=== PATIENT | female | born 1995 | race Caucasian/White ===

== ENCOUNTER 2016-07-28 | Emergency (ER) | payer MEDICAID | END 2016-07-28 19:44 | disposition home or self-care (01) | DX: L01.00 Impetigo, unspecified (principal) ==

== ENCOUNTER 2016-10-02 04:03 | Emergency (ER) | payer MEDICAID ==
[2016-10-02] MEDS ORDERED: AZITHROMYCIN 250 MG TABLET PO STA (04:15)
[2016-10-02] MEDS ORDERED: DEXAMETHASONE 10 MG/ML VIAL PO STA (04:15)
[2016-10-02] MEDS ORDERED: AZITHROMYCIN 250 MG TABLET PO ONE (04:17)
[2016-10-02] MEDS ORDERED: CHERRY SYRUP 10 ML UDC PO ONE (04:17)
[2016-10-02] MEDS ORDERED: DEXAMETHASONE 10 MG/ML VIAL ONE (04:17)
== END 2016-10-02 04:26 | disposition home or self-care (01) ==
DX: H66.003 Acute suppurative otitis media without spontaneous rupture of ear drum, bilateral (principal)
CPT/HCPCS: 99283; A9270

== ENCOUNTER 2016-10-05 16:34 | Outpatient (CLI) | payer MEDICAID | END 2016-10-05 16:35 | disposition home or self-care (01) | DX: N91.2 Amenorrhea, unspecified (principal) ==

== ENCOUNTER 2016-10-06 20:59 | Outpatient (CLI) | payer MEDICAID | END 2016-10-06 21:00 | disposition home or self-care (01) | DX: N83.202 Unspecified ovarian cyst, left side (principal) ==

== ENCOUNTER 2017-01-01 03:44 | Outpatient (CLI) | payer MEDICAID | END 2017-01-01 03:45 | disposition critical access hospital (66) | LOC: EMS 03:44 | PROVIDERS: ATTEND Surgery | DX: S41.111A Laceration without foreign body of right upper arm, initial encounter (principal); X78.0XXA Intentional self-harm by sharp glass, initial encounter; Y92.039 Unspecified place in apartment as the place of occurrence of the external cause | CPT/HCPCS: A0425; A0429 ==

== ENCOUNTER 2017-01-01 04:01 | Emergency (ER) | payer MEDICAID ==
[2017-01-01 04:31] LABS: BASOPHILS # (AUTO) 0.1 10^3/uL (0.0-0.1); BASOPHILS % (AUTO) 0.7 %; EOSINOPHILS # (AUTO) 0.1 10^3/uL (0.0-0.7); EOSINOPHILS % (AUTO) 0.7 %; HCT - HEMATOCRIT 38.1 % (37.0-47.0); HGB - HEMOGLOBIN 12.7 g/dL (12.0-16.0); LYMPHOCYTES # (AUTO) 1.9 10^3/uL (1.5-3.5); LYMPHOCYTES % (AUTO) 25.5 %; MEAN CORPUSCULAR HEMOGLOBIN 30.3 pg (27.0-31.0); MEAN CORPUSCULAR HGB CONC 33.4 g/dL (32.0-36.0); MEAN CORPUSCULAR VOLUME 90.6 fL (81.0-99.0); MEAN PLATELET VOLUME 7.4 fL (7.9-10.8); MONOCYTES # (AUTO) 0.5 10^3/uL (0.0-1.0); MONOCYTES % (AUTO) 6.9 %; NEUTROPHILS # (AUTO) 4.8 10^3/uL (1.5-6.6); NEUTROPHILS % (AUTO) 66.2 %; RED BLOOD COUNT 4.21 10^6/uL (4.20-5.40); RED CELL DISTRIBUTION WIDTH 13.6 % (12.0-15.0); UNCORRECTED WHITE BLOOD COUNT 7.3 x10^3/uL; WHITE BLOOD COUNT 7.3 x10^3/uL (4.8-10.8)
[2017-01-01 04:34] LABS: CREATININE 0.6 mg/dL (0.4-1.0); POTASSIUM 3.8 mmol/L (3.5-5.0)
[2017-01-01 04:35] LABS: HCG UR QUAL NEGATIVE
--- NOTE | 2017-01-01 04:57 | ED Physician Documentation ---
PD HPI MHE - Stated complaint Stated Complaint: SUPERFCIAL CUTS - Chief complaint Chief Complaint: MHE - History obtained from History obtained from: Patient, EMS - History of Present Illness Primary symptom: Self harm - cut Timing - onset: How many hours ago (less than 1 hour OPERATIONS TRAINER) Pain level now: 0 Contributing factors: Other (boyfriend) Similar symptoms before: Has not had sx before Recently seen: Not recently seen - Additional information Additional information: got into an argument with her boyfriend; she picked up a piece of broken glass and self-inflicted superficial abrasions to right FA Review of Systems Neurologic: denies: Focal weakness, Numbness Psychiatric: denies: Depressed, Suicidal, Homicidal PD PAST MEDICAL HISTORY - Past Medical History Past Medical History: No - Past Surgical History Past Surgical History: No - Present Medications Home Medications: Ambulatory Orders Medication Instructions Recorded Confirmed No Known Home Medications [No 01/01/17 01/01/17 Known Home Medications] - Allergies Allergies/Adverse Reactions: Allergies Allergy/AdvReac Type Severity Reaction Status Date / Time No Known Drug Allergies Allergy Verified 01/01/17 04:08 - Social History Does the pt smoke?: No Smoking Status: Never smoker Does the pt drink ETOH?: Yes Does the pt have substance abuse?: No - Immunizations Immunizations are current?: Yes PD ED PE NORMAL - Vitals Vital signs reviewed: Yes - General General: Alert and oriented X 3, No acute distress, Well developed/nourished - HEENT HEENT: Moist mucous membranes - Cardiac Cardiac: RRR, No murmur - Respiratory Respiratory: No respiratory distress, Clear bilaterally - Extremities Extremities: Other (superficial linear abrasions right FA, volar surface) - Neuro Neuro: Alert and oriented X 3, No motor deficit, No sensory deficit - Psych Psych: Normal mood, Normal affect Results - Vitals Vitals: Vital Signs - 24 hr 01/01/17 01/01/17 04:04 05:24 Temperature 36.9 C Heart Rate 109 H 79 Respiratory 16 16 Rate Blood Pressure 121/89 H 106/69 O2 Saturation 97 98 Oxygen O2 Source Room air - Labs Labs: Laboratory Tests 01/01/17 01/01/17 01/01/17 04:10 04:15 04:15 WBC 7.3 RBC 4.21 Hgb 12.7 Hct 38.1 MCV 90.6 MCH 30.3 MCHC 33.4 RDW 13.6 Plt Count 305 MPV 7.4 L Neut # 4.8 Lymph # 1.9 Baxter # 0.5 Eos # 0.1 Baso # 0.1 Absolute Nucleated RBC 0.00 Nucleated RBCs 0.0 Sodium 144 Potassium 3.8 Chloride 111 Carbon Dioxide 25 Anion Gap 8.0 BUN 12 Creatinine 0.6 Estimated GFR (MDRD) 127 Glucose 90 Calcium 9.0 Ur Specific [place] 1.025 Urine HCG, Qual NEGATIVE Urine Opiates Screen NEGATIVE Ur Oxycodone Screen NEGATIVE Urine Methadone Screen NEGATIVE Ur Propoxyphene Screen NEGATIVE Ur Barbiturates Screen NEGATIVE Ur Tricyclics Screen NEGATIVE Ur Phencyclidine Scrn NEGATIVE Ur Amphetamine Screen NEGATIVE U Methamphetamines Scrn NEGATIVE U Benzodiazepines Scrn NEGATIVE Urine Cocaine Screen NEGATIVE U Cannabinoids Screen NEGATIVE Ethyl Alcohol 122.9 PD MEDICAL DECISION MAKING - ED course Complexity details: reviewed results, re-evaluated patient, considered differential, d/w patient ED course: Patient strongly denies suicidal ideation. She admits to drinking some alcohol tonight and she says she self-inflicted her abrasions "in the heat of the moment " (per patient) because she was angry over the argument with her boyfriend. She feels safe going home and declines offer for MHE evaluation. Departure - Departure Disposition: 01 Home, Self Care Clinical Impression: Alcoholic intoxication, Injury, self-inflicted Condition: Good Instructions: ED Abrasion, ED Alcohol Intoxication Discharge Date/Time: 01/01/17 05:26
[2017-01-01 05:26] VITALS: BP 106/69
== END 2017-01-01 05:26 | disposition home or self-care (01) ==
LOC: EDUNIT# → ED 04:01
DX: S50.811A Abrasion of right forearm, initial encounter (principal); X78.0XXA Intentional self-harm by sharp glass, initial encounter; F10.129 Alcohol abuse with intoxication, unspecified
CPT/HCPCS: 36415; 80048; 80306; 80320; 81025; 85025; 99284

== ENCOUNTER 2017-01-29 23:30 | Emergency (ER) | payer MEDICAID ==
[2017-01-29 23:49] LABS: BILIRUBIN,URINE NEGATIVE (NEGATIVE); PH,URINE 6.5 PH (5.0-7.5)
[2017-01-29 23:51] LABS: HCG UR QUAL POSITIVE; UA CHARGE (STRIP ONLY) YES; UR CULTURE IF IND NOT INDICATED
[2017-01-30 00:10] LABS: BASOPHILS % (AUTO) 0.4 %; EOSINOPHILS # (AUTO) 0.2 10^3/uL (0.0-0.7); EOSINOPHILS % (AUTO) 1.4 %; HCT - HEMATOCRIT 34.3 % (37.0-47.0); HGB - HEMOGLOBIN 11.5 g/dL (12.0-16.0); LYMPHOCYTES # (AUTO) 2.8 10^3/uL (1.5-3.5); LYMPHOCYTES % (AUTO) 25.6 %; MEAN CORPUSCULAR HEMOGLOBIN 30.3 pg (27.0-31.0); MEAN CORPUSCULAR HGB CONC 33.5 g/dL (32.0-36.0); MEAN CORPUSCULAR VOLUME 90.3 fL (81.0-99.0); MEAN PLATELET VOLUME 7.1 fL (7.9-10.8); NEUTROPHILS % (AUTO) 63.6 %; RED BLOOD COUNT 3.79 10^6/uL (4.20-5.40); RED CELL DISTRIBUTION WIDTH 13.1 % (12.0-15.0); UNCORRECTED WHITE BLOOD COUNT 11.1 x10^3/uL; WHITE BLOOD COUNT 11.1 x10^3/uL (4.8-10.8)
--- NOTE | 2017-01-30 00:20 | ED Physician Documentation ---
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 patient states that she took a home test 2 days ago and it was positive. Patient states that today after she had intercourse she noticed blood in the urine and blood when she wiped. patient is also complaining of suprapubic pain that is stabbing in nature that comes and goes. Review of Systems Constitutional: denies: Fever, Chills Eyes: denies: Decreased vision Ears: denies: Ear pain, Drainage/discharge Nose: denies: Rhinorrhea / runny nose, Congestion, Epistaxis Throat: denies: Oral lesions / sores, Sore throat Cardiac: denies: Chest pain / pressure GI: reports: Abdominal Pain. denies: Nausea, Vomiting, Constipation, Diarrhea : reports: Hematuria, Vaginal bleeding, Missed period Skin: denies: Rash, Lesions Musculoskeletal: denies: Neck pain, Back pain, Extremity pain Endocrine: denies: Polyphagia PD PAST MEDICAL HISTORY - Past Surgical History Past Surgical History: No - Present Medications Home Medications: Ambulatory Orders Medication Instructions Recorded Confirmed No Known Home Medications [No 01/01/17 01/29/17 Known Home Medications] - Allergies Allergies/Adverse Reactions: Allergies Allergy/AdvReac Type Severity Reaction Status Date / Time No Known Drug Allergies Allergy Verified 01/29/17 23:39 - Social History Does the pt smoke?: No Smoking Status: Never smoker Does the pt drink ETOH?: Yes Does the pt have substance abuse?: No - Immunizations Immunizations are current?: Yes PD ED PE NORMAL - Vitals Vital signs reviewed: Yes - General General: Alert and oriented X 3, No acute distress - HEENT HEENT: Atraumatic, PERRL - Neck Neck: Supple, no meningeal sign - Cardiac Cardiac: RRR, No murmur - Respiratory Respiratory: No respiratory distress - Abdomen Abdomen: Soft - Derm Derm: Normal color, Warm and dry, No rash - Extremities Extremities: No deformity - Neuro Neuro: Alert and oriented X 3, manager agriculture 2-12 intact, No motor deficit, No sensory deficit - Psych Psych: Normal mood, Normal affect PD ED PE EXPANDED - Female Female : Normal external, Vaginal Discharge (minimal vaginal discharge), Cultures sent, Bobtail Driver present. No: Dilated cervix, Tissue present, Adnexal Mass, Adnexal Tenderness Results - Vitals Vitals: Vital Signs - 24 hr 01/29/17 23:35 Temperature 36.8 C Heart Rate 85 Respiratory 18 Rate Blood Pressure 114/72 O2 Saturation 99 Oxygen O2 Source Room air - Labs Labs: Microbiology 01/30/17 00:15 Wet Prep - Final Genital - Vaginal Laboratory Tests 01/29/17 01/30/17 01/30/17 23:40 00:00 00:00 WBC 11.1 H RBC 3.79 L Hgb 11.5 L Hct 34.3 L MCV 90.3 MCH 30.3 MCHC 33.5 RDW 13.1 Plt Count 288 MPV 7.1 L Neut # 7.0 H Lymph # 2.8 [place] # 1.0 Eos # 0.2 Baso # 0.0 Absolute Nucleated RBC 0.00 Nucleated RBCs 0.0 HCG, Quant 6990.00 Urine Color YELLOW Urine Clarity CLEAR Urine pH 6.5 Ur Specific Brogan 1.020 Urine Protein NEGATIVE Urine Glucose (UA) NEGATIVE Urine Ketones NEGATIVE Urine Occult Blood NEGATIVE Urine Nitrite NEGATIVE Urine Bilirubin NEGATIVE Urine Urobilinogen 0.2 (NORMAL) Ur Leukocyte Esterase NEGATIVE Ur Microscopic Review NOT INDICATED Urine Culture Comments NOT INDICATED Urine HCG, Qual POSITIVE Blood Type 01/30/17 00:25 WBC RBC Hgb Hct MCV MCH MCHC RDW Plt Count MPV Neut # Lymph # Sierra # Eos # Baso # Absolute Nucleated RBC Nucleated RBCs HCG, Quant Urine Color Urine Clarity Urine pH Ur Specific Brogan Urine Protein Urine Glucose (UA) Urine Ketones Urine Occult Blood Urine Nitrite Urine Bilirubin Urine Urobilinogen Ur Leukocyte Esterase Ur Microscopic Review Urine Culture Comments Urine HCG, Qual Blood Type O POSITIVE PD MEDICAL DECISION MAKING - ED course Complexity details: reviewed old records, reviewed results, re-evaluated patient , considered differential, d/w patient ED course: Patient was seen and examined at bedside. Patient was well appearing with normal vital signs. urine was collected and was positive. labs were drawn and ultrasound was ordered. Patient rh positive. ultrasound was performed. Patient had an iup. Patient was given detailed discharge and return instructions. Patient required no further work up and was stable for discharge with outpatient follow up. Departure - Departure Disposition: 01 Home, Self Care Clinical Impression: Threatened in early Condition: Good Instructions: ED Miscarriage Poss Follow-Up: Gail Roque, [Provider Admit Priv/Credential] - Tomorrow (call to schedule a follow up appointment) Comments: You have an early . You should call dr. Roque tomorrow to schedule a follow up appointment. You should return to the emergency department at any time for new, worsening or uncontrollable symptoms.
--- NOTE | 2017-01-30 02:33 | Ultrasound Preliminary Report ---
Exam: US OB TRANSVAGINAL IMPRESSION: Probable very early intrauterine gestation with a very early intrauterine gestational sac and yolk sac but no pole seen currently. Clinical and 2 week follow-up pelvic ultrasound sugge sted to ensure viability and to entirely exclude ectopic. [facility] SITE ID: [id number]
--- NOTE | 2017-01-30 02:35 | Ultrasound Report ---
EXAM: FIRST TRIMESTER OBSTETRIC ULTRASOUND (Less than 11 weeks) EXAM DATE: 01/30/2017 02:08 AM. CLINICAL HISTORY: Vaginal bleeding early . LMP: 12/17/2016, 6 weeks 2 days. COMPARISONS: None. TECHNIQUE: Transabdominal and transvaginal ultrasound examination with static image documentation. FINDINGS: Gestational Sac: Probable very early intrauterine gestational sac with a mean sac diameter of 9 mm, 5 weeks 5 days. Small yolk sac with no pole seen currently. Placenta: Not visible at this gestational age. Amniotic fluid: Not accurately assessed at this gestational age. Uterus: Unremarkable anteverted appearance. Right Ovary: Volume 5 cc. Normal echotexture and blood flow. Left Ovary: Volume 23 cc. Normal echotexture and blood flow. Free Fluid: None. Other: None. IMPRESSION: Probable very early intrauterine gestation with a very early intrauterine gestational sac and yolk sac but no pole seen currently. Clinical and 2 week follow-up pelvic ultrasound sugge sted to ensure viability and to entirely exclude ectopic. [facility] Referring Provider Line: [phone] SITE ID: [id number]
[2017-01-30 02:51] VITALS: BP 111/74
== END 2017-01-30 02:52 | disposition home or self-care (01) ==
LOC: ED 23:30
DX: O20.0 Threatened abortion (principal)
CPT/HCPCS: 36415; 76801; 76817; 81001; 81003; 81025; 84702; 85025; 86900; 86901; 87086; 87210; 87491; 87591; 99283; 99284

== ENCOUNTER 2017-02-07 15:55 | Outpatient (CLI) | payer MEDICAID | END 2017-02-07 15:56 | disposition home or self-care (01) | LOC: LAB 15:55 | PROVIDERS: ATTEND Obstetrics & Gynecology | DX: O20.0 Threatened abortion (principal) | CPT/HCPCS: 36415; 84702 ==

== ENCOUNTER 2017-02-07 16:07 | Emergency (ER) | payer MEDICAID ==
--- NOTE | 2017-02-07 21:16 | Ultrasound Preliminary Report ---
Exam: US OB First Trimester IMPRESSION: 1. Single viable intrauterine at EGA 6 weeks 5 days with MATT 09/28/2017 based on crown-rump length, which is concordant with clinical dates. 2. Assigned dating is MATT 09/28/2017 based on current ultrasound. [facility] SITE ID: [id number]
--- NOTE | 2017-02-07 21:19 | Ultrasound Report ---
EXAM: FIRST TRIMESTER OBSTETRIC ULTRASOUND (Less than 11 weeks) EXAM DATE: 02/07/2017 08:57 PM. CLINICAL HISTORY: Vaginal bleeding, no confirmed iup. LMP: 12/17/2016. COMPARISONS: 01/30/2017. TECHNIQUE: Transabdominal and transvaginal ultrasound examination with static image documentation. CLINICAL DATES: EGA 7 weeks 3 days with MATT 09/23/2017 based on LMP. ASSESSMENT: Gestational Sac: Single intrauterine. Mean gestational sac diameter: 25 mm = 7 weeks 4 days. Embryo: CRL (crown-rump length) 7.3 mm = 6 weeks 5 days. Cardiac activity: 130 beats per minute. Yolk sac: 2 mm. Amniotic fluid: Not accurately assessed at this gestational age. Early placenta: Not visible at this gestational age. Other: No perigestational fluid collection demonstrated. MATERNAL STRUCTURES: Uterus: Anteverted. Unremarkable. Cervix: Closed. Right Ovary: 3.8 x 2.0 x 2.1 cm, volume 8.2 cc. Unremarkable. Left Ovary: 4.5 x 4.3 x 4.1 cm, volume 41.3 cc. Physiologic cysts measuring 2.3 and 1.9 cm. Normal ov jakob blood flow.. Free Fluid: None. Other: None. IMPRESSION: 1. Single viable intrauterine at EGA 6 weeks 5 days with MATT 09/28/2017 based on crown-rump length, which is concordant with clinical dates. 2. Assigned dating is MATT 09/28/2017 based on current ultrasound. [facility] Referring Provider Line: [phone] SITE ID: [id number]
[2017-02-07 21:25] VITALS: BP 114/91
--- NOTE | 2017-02-07 21:32 | ED Physician Documentation ---
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 patient was previously seen and had an inconclusive ultrasound. Patient went to see her doctor today who said sorry about your loss and told her she had a miscarriage. patient states that she had a follow up on but could not wait that long to find out if she had a or not. Patient denied abdominal pain, vaginal bleeding or vaginal discharge. Review of Systems Constitutional: denies: Fever, Chills Eyes: denies: Decreased vision Ears: denies: Ear pain, Drainage/discharge Nose: denies: Congestion Throat: denies: Dental pain / toothache, Sore throat Respiratory: denies: Cough GI: denies: Abdominal Pain, Nausea, Vomiting, Constipation, Diarrhea : denies: Dysuria, Frequency, Hematuria, Vaginal bleeding Skin: denies: Rash, Lesions Musculoskeletal: denies: Neck pain, Back pain Neurologic: denies: Generalized weakness Immunocompromised: denies: Immunocompromised PD PAST MEDICAL HISTORY - Past Surgical History Past Surgical History: No - Present Medications Home Medications: Ambulatory Orders Medication Instructions Recorded Confirmed No Known Home Medications [No 01/01/17 02/07/17 Known Home Medications] - Allergies Allergies/Adverse Reactions: Allergies Allergy/AdvReac Type Severity Reaction Status Date / Time No Known Drug Allergies Allergy Verified 02/07/17 16:26 - Social History Does the pt smoke?: No Smoking Status: Never smoker Does the pt drink ETOH?: Yes Does the pt have substance abuse?: No - Immunizations Immunizations are current?: Yes PD ED PE NORMAL - Vitals Vital signs reviewed: Yes - General General: Alert and oriented X 3, No acute distress - HEENT HEENT: Atraumatic, PERRL - Neck Neck: Supple, no meningeal sign - Cardiac Cardiac: RRR, No murmur - Respiratory Respiratory: No respiratory distress - Abdomen Abdomen: Soft, Non tender, Non distended - Derm Derm: Normal color, Warm and dry, No rash - Extremities Extremities: No deformity - Neuro Neuro: Alert and oriented X 3, No motor deficit, No sensory deficit - Psych Psych: Normal mood, Normal affect Results - Vitals Vitals: Vital Signs - 24 hr 02/07/17 02/07/17 16:22 21:25 Temperature 36.7 C Heart Rate 66 67 Respiratory 16 18 Rate Blood Pressure 115/78 114/91 H O2 Saturation 99 100 Oxygen O2 Source Room air - Labs Labs: Laboratory Tests 02/07/17 17:52 HCG, Quant 34794.00 - Rads (name of study) pelvic ultrasound Radiology: Final report received (viable iup, 6 weeks 5 days) PD MEDICAL DECISION MAKING - ED course Complexity details: reviewed old records, reviewed results, re-evaluated patient , considered differential, d/w patient, d/w family ED course: Patient was seen and examined at bedside. labs were drawn and imaging was ordered. when patient's diagnostics came back patient was found to have a viable iup. Patient had no vaginal bleeding or vaginal discharge. patient required no further work up at this time and was stable for discharge with outpatient follow up. Departure - Departure Disposition: 01 Home, Self Care Clinical Impression: Threatened in early , at early stage Condition: Good Instructions: Care , ED Miscarriage Poss Follow-Up: Nayeli Deng MINE CAR REPAIRER [Primary Care Provider] - Comments: Your diagnostics today were within normal limits. there is a viable IUP today. You should still follow up with your ob for routine care. You may return to the emergency department at any time for new, worsening or uncontrollable symptoms. Discharge Date/Time: 02/07/17 21:48
== END 2017-02-07 21:48 | disposition home or self-care (01) ==
LOC: ED 16:07
DX: O20.0 Threatened abortion (principal); Z3A.01 Less than 8 weeks gestation of pregnancy
CPT/HCPCS: 36415; 76801; 84702; 99282; 99283

== ENCOUNTER 2017-02-09 09:45 | Outpatient (CLI) | payer MEDICAID ==
[2017-02-09 10:19] LABS: BASOPHILS % (AUTO) 0.3 %; EOSINOPHILS # (AUTO) 0.1 10^3/uL (0.0-0.7); EOSINOPHILS % (AUTO) 0.7 %; HCT - HEMATOCRIT 35.2 % (37.0-47.0); HGB - HEMOGLOBIN 11.8 g/dL (12.0-16.0); LYMPHOCYTES # (AUTO) 1.7 10^3/uL (1.5-3.5); LYMPHOCYTES % (AUTO) 20.3 %; MEAN CORPUSCULAR HEMOGLOBIN 30.7 pg (27.0-31.0); MEAN CORPUSCULAR HGB CONC 33.6 g/dL (32.0-36.0); MEAN CORPUSCULAR VOLUME 91.3 fL (81.0-99.0); MEAN PLATELET VOLUME 7.5 fL (7.9-10.8); MONOCYTES # (AUTO) 0.6 10^3/uL (0.0-1.0); MONOCYTES % (AUTO) 7.3 %; NEUTROPHILS % (AUTO) 71.4 %; RED BLOOD COUNT 3.86 10^6/uL (4.20-5.40); RED CELL DISTRIBUTION WIDTH 13.3 % (12.0-15.0); UNCORRECTED WHITE BLOOD COUNT 8.5 x10^3/uL; WHITE BLOOD COUNT 8.5 x10^3/uL (4.8-10.8)
[2017-02-09 10:26] LABS: BILIRUBIN,URINE NEGATIVE (NEGATIVE)
[2017-02-09 10:40] LABS: WBC,URINE 0-3 /HPF (0-5)
== END 2017-02-09 09:46 | disposition home or self-care (01) ==
LOC: LAB 09:45
PROVIDERS: ATTEND Obstetrics & Gynecology
DX: Z36 Encounter for antenatal screening of mother (principal)
CPT/HCPCS: 36415; 81001; 81599; 85025; 86762; 86850; 86900; 86901; 87340; 87389

== ENCOUNTER 2017-02-09 10:42 | Outpatient (CLI) | payer MEDICAID | END 2017-02-09 10:43 | disposition home or self-care (01) | LOC: LAB.R 10:42 | PROVIDERS: ATTEND Obstetrics & Gynecology | DX: Z36 Encounter for antenatal screening of mother (principal) | CPT/HCPCS: 87491; 87591 ==

== ENCOUNTER 2017-03-14 16:16 | Outpatient (CLI) | payer MEDICAID | END 2017-03-14 16:17 | disposition home or self-care (01) | LOC: LAB 16:16 | PROVIDERS: ATTEND Obstetrics & Gynecology | DX: Z36 Encounter for antenatal screening of mother (principal) | CPT/HCPCS: 36415; 81599 ==

== ENCOUNTER 2017-06-29 11:00 | Outpatient (CLI) | payer MEDICAID ==
[2017-06-29 12:11] LABS: BASOPHILS % (AUTO) 0.2 %; EOSINOPHILS # (AUTO) 0.1 10^3/uL (0.0-0.7); EOSINOPHILS % (AUTO) 1.1 %; HCT - HEMATOCRIT 27.5 % (37.0-47.0); HGB - HEMOGLOBIN 9.2 g/dL (12.0-16.0); LYMPHOCYTES # (AUTO) 1.7 10^3/uL (1.5-3.5); LYMPHOCYTES % (AUTO) 14.6 %; MEAN CORPUSCULAR HEMOGLOBIN 29.7 pg (27.0-31.0); MEAN CORPUSCULAR HGB CONC 33.5 g/dL (32.0-36.0); MEAN CORPUSCULAR VOLUME 88.6 fL (81.0-99.0); MEAN PLATELET VOLUME 8.2 fL (7.9-10.8); MONOCYTES % (AUTO) 8.3 %; NEUTROPHILS # (AUTO) 8.8 10^3/uL (1.5-6.6); NEUTROPHILS % (AUTO) 75.8 %; RED CELL DISTRIBUTION WIDTH 12.3 % (12.0-15.0); UNCORRECTED WHITE BLOOD COUNT 11.6 x10^3/uL; WHITE BLOOD COUNT 11.6 x10^3/uL (4.8-10.8)
== END 2017-06-29 11:01 | disposition home or self-care (01) ==
LOC: LAB 11:00
PROVIDERS: ATTEND Family Medicine
DX: Z34.03 Encounter for supervision of normal first pregnancy, third trimester (principal)
CPT/HCPCS: 36415; 82947; 82950; 85025

== ENCOUNTER 2018-09-21 19:42 | Emergency (ER) | payer MEDICAID, OTHER ==
[2018-09-21 20:21] VITALS: BP 142/92
[2018-09-21 20:34] LABS: BASOPHILS % (AUTO) 0.3 %; EOSINOPHILS % (AUTO) 0.3 %; HGB - HEMOGLOBIN 12.6 g/dL (12.0-16.0); LYMPHOCYTES # (AUTO) 1.3 10^3/uL (1.5-3.5); LYMPHOCYTES % (AUTO) 17.7 %; MEAN CORPUSCULAR HEMOGLOBIN 30.8 pg (27.0-31.0); MEAN CORPUSCULAR HGB CONC 34.6 g/dL (32.0-36.0); MEAN PLATELET VOLUME 7.6 fL (7.9-10.8); MONOCYTES # (AUTO) 0.4 10^3/uL (0.0-1.0); MONOCYTES % (AUTO) 5.7 %; NEUTROPHILS # (AUTO) 5.7 10^3/uL (1.5-6.6); PLT - PLATELET COUNT 273 10^3/uL (130-450); RED CELL DISTRIBUTION WIDTH 12.6 % (12.0-15.0); WHITE BLOOD COUNT 7.5 x10^3/uL (4.8-10.8)
[2018-09-21 20:54] LABS: ALBUMIN 4.7 g/dL (3.2-5.5); ALBUMIN/GLOBULIN RATIO 1.4 (1.0-2.2); BILIRUBIN,TOTAL 0.5 mg/dL (0.2-1.0); CALCIUM 9.4 mg/dL (8.5-10.3); CREATININE 0.5 mg/dL (0.4-1.0)
[2018-09-21] MEDS ORDERED: LORazepam 1 MG TABLET PO STA ×2 (21:15→22:48)
[2018-09-21] MEDS ORDERED: POTASSIUM BICARB 25 MEQ TABLET PO STA (21:15)
--- NOTE | 2018-09-21 21:21 | ED Physician Documentation ---
History of Present Illness - Stated complaint Stated Complaint: RHP/TROUBLE BREATHING - Chief complaint Chief Complaint: Resp - History obtained from History obtained from: Patient - History of Present Illness Timing: Enter time (18:40), Today Pain level max: 0 Pain level now: 0 Improved by: rest Worsened by: standing, ambulating - Additonal information Additional information: c/o rapid palpitations, dizziness/lightheadedness, generalized paresthesias. onset 6:30 PM while at rest. Review of Systems Cardiac: reports: Palpitations. denies: Chest pain / pressure, Pedal edema, Calf pain Respiratory: reports: Reviewed and negative GI: reports: Reviewed and negative Musculoskeletal: denies: Extremity swelling Neurologic: denies: Generalized weakness, Focal weakness, Numbness, Headache PD PAST MEDICAL HISTORY - Past Medical History Cardiovascular: None Respiratory: None Neuro: None Endocrine/Autoimmune: None GI: None CHIEF MEDICAL DIRECTOR: None : None HEENT: None Psych: Anxiety Derm: None - Past Surgical History Past Surgical History: No - Present Medications Home Medications: Ambulatory Orders Medication Instructions Recorded Confirmed LORazepam [Lorazepam] 0.5 - 1 mg PO TID PRN #20 tablet 09/21/18 - Allergies Allergies/Adverse Reactions: Allergies Allergy/AdvReac Type Severity Reaction Status Date / Time No Known Drug Allergies Allergy Verified 09/21/18 20:02 - Social History Does the pt smoke?: No Smoking Status: Never smoker Does the pt drink ETOH?: Yes Does the pt have substance abuse?: No - Immunizations Immunizations are current?: Yes - POLST Patient has POLST: No PD ED PE NORMAL - Vitals Vital signs reviewed: Yes - General General: Alert and oriented X 3, No acute distress, Well developed/nourished - Cardiac Cardiac: No murmur - Respiratory Respiratory: No respiratory distress, Clear bilaterally - Abdomen Abdomen: Soft, Non tender - Derm Derm: Normal color, Warm and dry - Extremities Extremities: No edema PD ED PE EXPANDED - Cardiac Cardiac: Tachy, Regular Rhythm Results - Vitals Vitals: Oxygen O2 Source Room air - EKG (time done) No standard instances Rate: Rate (enter#) (142), Tachy Rhythm: Sinus tachycardia [place]: Normal Intervals: Normal MI, Prolonged QT QRS: Normal Ischemia: Normal ST segments - Labs Labs: Laboratory Tests 09/21/18 09/21/18 09/21/18 20:30 20:30 20:30 WBC 7.5 RBC 4.10 L Hgb 12.6 Hct 36.5 L MCV 89.0 MCH 30.8 MCHC 34.6 RDW 12.6 Plt Count 273 MPV 7.6 L Neut # (Auto) 5.7 Lymph # (Auto) 1.3 L [place] # (Auto) 0.4 Eos # (Auto) 0.0 Baso # (Auto) 0.0 Absolute Nucleated RBC 0.00 Nucleated RBC % 0.0 D-Dimer < 200.0 L Sodium 136 Potassium 3.1 L Chloride 105 Carbon Dioxide 20 L Anion Gap 11.0 BUN 10 Creatinine 0.5 Estimated GFR (MDRD) 156 Glucose 130 H Calcium 9.4 Total Bilirubin 0.5 AST 22 ALT 16 Alkaline Phosphatase 48 Total Protein 8.0 Albumin 4.7 Globulin 3.3 Albumin/Globulin Ratio 1.4 Lipase 31 PD MEDICAL DECISION MAKING - ED course Complexity details: reviewed results, re-evaluated patient, considered differential, d/w patient ED course: given PO ativan with improvement in symptoms and pulse improved to 90s-100s, 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 oral potassium given fir mild hypokalemia. advised to follow up with PMD for recheck of potassium as well as reassessment for these symptoms Departure - Departure Disposition: 01 Home, Self Care Clinical Impression: Anxiety, Palpitation, Hypokalemia Condition: Good Instructions: ED Potassium Deficiency, ED Palpitations, ED Panic Attack Follow-Up: KARLOS RODAS MD [Primary Care Provider] - Prescriptions: LORazepam [Lorazepam] 0.5 - 1 mg PO TID PRN #20 tablet PRN Reason: Anxiety Discharge Date/Time: 09/21/18 23:06
== END 2018-09-21 23:06 | disposition home or self-care (01) ==
LOC: ED 19:42
DX: F41.9 Anxiety disorder, unspecified (principal); R00.2 Palpitations; E87.6 Hypokalemia; R00.0 Tachycardia, unspecified
CPT/HCPCS: 36415; 80053; 83690; 85025; 85379; 93005; 99283; A9270; J8499

== ENCOUNTER 2020-02-24 14:24 | Outpatient (CLI) | payer OTHER | END 2020-02-24 14:25 | disposition EMS.NT | LOC: EMS 14:24 | PROVIDERS: ATTEND Surgery | DX: R20.2 Paresthesia of skin (principal); R00.0 Tachycardia, unspecified ==